=== PATIENT | female | born 1965 | race American Indian/Alaskan Native ===

== ENCOUNTER 2022-05-31 15:46 | Outpatient (CLI) | payer OTHER ==
--- NOTE | 2022-05-31 23:44 | XRay Report ---
LEFT ANKLE 2 VIEWS STANDING 1724 INDICATION: STANDING AP AND LATERAL COMPARISON: None available. FINDINGS: Diffuse soft tissue swelling, more prominent medially. No obvious acute fractures or disloc ations. Prominent tarsal degenerative changes and there may be chronic fragmentation in the proximal tarsals as can be seen with Charcot's joint. Pes planus is noted. Mild inferior calcaneal spurring is partially visualized. LEFT FOOT 2 VIEWS STANDING 1725 INDICATION: STANDING AP AND LATERAL COMPARISON: None available. FINDINGS: Tarsal findings as above with apparent chronic fragmentation as can be seen with Charcot's joint. No definite acute fractures. Mild inferior calcaneal spurring. Pes planus. Signer Name: Honorio Nair MD Signed: 05/31/2022 11:39 PM Workstation Name: [id number]
== END 2022-05-31 15:47 | disposition home or self-care (01) ==
LOC: XRAY 15:46
PROVIDERS: ATTEND Orthopaedic Surgery
DX: M19.072 Primary osteoarthritis, left ankle and foot (principal); M77.32 Calcaneal spur, left foot